=== PATIENT | female | born 1980 | race Caucasian/White ===

== ENCOUNTER 2022-06-05 19:06 | Emergency (ER) | payer SELFPAY ==
[~2022-06-05] VITALS: Ht 162.6 cm; Wt 91.0 kg
[2022-06-05 19:10] VITALS: BP 171/88
== END 2022-06-05 23:28 | disposition left against medical advice (07) ==
LOC: ER 19:06
DX: Z53.21 Procedure and treatment not carried out due to patient leaving prior to being seen by health care provider (principal)
CPT/HCPCS: 99281